=== PATIENT | female | born 1960 | race Hispanic/Latino ===

== ENCOUNTER 2018-12-04 08:19 | Emergency (ER) | payer BC, OTHER ==
[2018-12-04 08:43] LABS: BASOPHILS % (AUTO) 0.6 % (0.0-5.0); HEMATOCRIT 40.7 % (36-48); LYMPHOCYTES % (AUTO) 18.5 % (21.0-51.0); MEAN CORPUSCULAR HEMOGLOBIN 30.2 pg (27.0-33.0); MEAN CORPUSCULAR HGB CONC 34.6 g/dL (32.0-36.0); MEAN CORPUSCULAR VOLUME 87.2 fL (79-99); MONOCYTES % (AUTO) 7.8 % (3.0-13.0); NEUTROPHILS % (AUTO) 71.1 % (40.0-77.0); PLATELET COUNT (AUTO) 171 K/uL (130-400); RED BLOOD CELL COUNT(AUTO) 4.66 MIL/uL (4.00-5.50); RED CELL DISTRIBUTION WIDTH 13.2 % (11.0-15.5); WHITE BLOOD COUNT (AUTO) 5.8 K/uL (4.8-10.8)
[2018-12-04 08:53] LABS: CREATININE 0.7 mg/dL (0.5-1.5); POTASSIUM 4.4 mmol/L (3.5-5.1)
[2018-12-04 08:56] LABS: INR 0.94 (0.85-1.15); PARTIAL THROMBOPLASTIN TIME 29.5 SEC (26.3-35.5); PROTHROMBIN TIME 9.9 SEC (9.6-11.6)
[2018-12-04 08:59] LABS: ALBUMIN 4.2 g/dL (3.5-5.0); BILIRUBIN,TOTAL 0.4 mg/dL (0.2-1.0); TOTAL PROTEIN, SERUM 7.7 g/dL (6.0-8.3)
[2018-12-04] MEDS ORDERED: ONDANSETRON HCL 4 MG/2 ML VIAL ONE (09:03)
[2018-12-04] MEDS ORDERED: MORPHINE SULFATE 4 MG/1ML SYG ONE (09:03)
[2018-12-04 09:05] LABS: CREATINE KINASE, TOTAL 62 U/L (21-232); MYOGLOBIN 28 ng/mL (10-92); TROPONIN I < 0.04 ng/mL (0.00-0.06)
== END 2018-12-04 12:59 | disposition home or self-care (01) ==
LOC: EDH 08:19
DX: R07.89 Other chest pain (principal); R51 Headache; B02.9 Zoster without complications; E11.9 Type 2 diabetes mellitus without complications; I10 Essential (primary) hypertension; E78.5 Hyperlipidemia, unspecified; Z87.891 Personal history of nicotine dependence
CPT/HCPCS: 36415; 70450; 71045; 80053; 82550; 83874; 84484; 85025; 85610; 85730; 93005; 96374; 96375; 99285; J2270; J2405

== ENCOUNTER → 2025-06-13 | Outpatient (CLI) | payer OTHER, MEDICARE | END | disposition home or self-care (01) | LOC: RAH 15:04 | PROVIDERS: ATTEND Internal Medicine | DX: Z12.31 Encounter for screening mammogram for malignant neoplasm of breast (principal) | CPT/HCPCS: 77067 ==

== ENCOUNTER → 2025-08-11 | Outpatient (CLI) | payer OTHER, MEDICARE ==
--- NOTE | 2025-08-11 22:12 | HMCIMG ---
EXAM: CT Head Without IV contrast. CLINICAL HISTORY: Confusion. TECHNIQUE: Axial computed tomography images of the head/brain without intravenous contrast. COMPARISON: CT - CT HEAD/BRAIN W/O CONTRAST - 12/04/18 09:06 EDT. FINDINGS: BRAIN: Age appropriate diffuse cerebral volume loss is present with mild prominence of the ventricles and cortical sulci. Scattered low-attenuation foci in the bilateral frontal and parietal deep white matter are compatible with chronic small vessel ischemic changes. No acute intracranial hemorrhage, mass lesion, or CT evidence of an acute territorial infarct is identified. No midline shift or extra-axial fluid collection. VENTRICLES: The ventricles are normal in configuration and size for the degree of cerebral volume loss. No hydrocephalus. ORBITS: The orbits are unremarkable. SINUSES AND MASTOIDS: The mastoid air cells are clear. The paranasal sinuses are predominantly clear. The nasal septum is deviated toward the left. BONES: No calvarial fracture is identified. SOFT TISSUES: No significant scalp soft tissue swelling or collection. IMPRESSION: * No acute intracranial abnormality to explain the current episode of confusion; specifically, no acute hemorrhage, large territorial infarct, mass effect, or hydrocephalus. * Age appropriate diffuse cerebral volume loss with mild chronic small vessel ischemic changes in the bilateral frontoparietal white matter, without significant interval change compared with CT head dated 12/04/18. /[place]
== END | disposition home or self-care (01) ==
LOC: RAH 11:15
PROVIDERS: ATTEND Internal Medicine
DX: I67.82 Cerebral ischemia (principal); R41.0 Disorientation, unspecified
CPT/HCPCS: 70450